=== PATIENT | female | born 1965 | race African-American/Black ===

== ENCOUNTER 2017-10-10 15:48 | Emergency (ER) | payer OTHER, MEDICAID ==
[~2017-10-10] VITALS: Ht 165.1 cm; Wt 90.9 kg
[~2017-10-10 15:48] MED LIST: AMLO10TA55 PO; ASPI-825 PO; LISI-618 PO; SERT50TA12 PO
[2017-10-10] MEDS ORDERED: IBUPROFEN 800 MG TABLET PO ONE (17:15)
[2017-10-10 17:45] VITALS: BP 158/92
== END 2017-10-10 17:40 | disposition home or self-care (01) ==
LOC: EMS 15:50
DX: H92.01 Otalgia, right ear (principal); I88.9 Nonspecific lymphadenitis, unspecified; I10 Essential (primary) hypertension; F17.210 Nicotine dependence, cigarettes, uncomplicated; Z88.0 Allergy status to penicillin; Z88.1 Allergy status to other antibiotic agents
CPT/HCPCS: 99283

== ENCOUNTER 2017-10-16 13:56 | Emergency (ER) | payer OTHER, MEDICAID ==
[~2017-10-16] VITALS: Ht 165.1 cm; Wt 90.9 kg
[2017-10-16 14:12] VITALS: BP 117/66
[2017-10-16] MEDS ORDERED: CLON.2 PO (14:21)
== END 2017-10-16 16:53 | disposition left against medical advice (07) ==
LOC: EMS 13:58
DX: N64.4 Mastodynia (principal); M25.512 Pain in left shoulder; I10 Essential (primary) hypertension; F17.210 Nicotine dependence, cigarettes, uncomplicated; Z53.21 Procedure and treatment not carried out due to patient leaving prior to being seen by health care provider